=== PATIENT | female | born 1985 | race Caucasian/White ===

== ENCOUNTER 2022-08-14 08:05 | Day surgery (SDC) | payer OTHER ==
[2022-08-12 14:04] VITALS: BMI 29.7
[2022-08-14] MEDS ORDERED: Ondansetron PF 4 MG/2 ML Vial ONE (10:13)
[2022-08-14] MEDS ORDERED: Lidocaine 1% PF 5 ML VIAL ONE (10:13)
[2022-08-14] MEDS ORDERED: PROPOFOL 200 MG/20 ML VIAL ONE (10:13)
[2022-08-14] MEDS ORDERED: Dexamethasone 20 MG/5 ML VIAL ONE (10:13)
[2022-08-14] MEDS ORDERED: Oxymetazoline HCl 0.05% (30 ML BOT) ONE (10:25)
[2022-08-14 10:54] LABS: BHCG - Serum Negative (NEGATIVE); Pregs Control Background? CLEAR/WHITE (CLR/WHITE); Pregs Control Bar Appear? YES (CONTROL BAR)
[2022-08-14] MEDS ORDERED: EPINEPHrine 1 MG/ML AMP ONE (10:58)
[2022-08-14] MEDS ORDERED: Lidocaine 1% (PF) 30 ML VIAL ONE (10:58)
[2022-08-14] MEDS ORDERED: fentaNYL 50 mcg/mL 1 mL Vial ONE (11:03)
[2022-08-14] MEDS ORDERED: Bacitracin Zinc Ointment 30 gm TUBE ONE (11:20)
== END 2022-08-14 13:44 | disposition home or self-care (01) ==
LOC: SDC 08:05
PROVIDERS: ATTEND Otolaryngology Plastic Surgery within the Head & Neck
PROC: 09QK0ZZ Repair Nasal Mucosa and Soft Tissue, Open Approach (ICD-10-PCS; principal; 2022-08-14)
DX: J34.89 Other specified disorders of nose and nasal sinuses (principal); D64.9 Anemia, unspecified; Z79.3 Long term (current) use of hormonal contraceptives; Z79.899 Other long term (current) drug therapy
CPT/HCPCS: 84703; 85014; C1889; J0171; J1100; J2001; J2405; J2704; J3010